=== PATIENT | female | born 1955 | race Caucasian/White ===

== ENCOUNTER 2024-07-16 13:13 | Inpatient (IN) | payer MEDICARE, OTHER, SELFPAY ==
[2024-07-16] VITALS (17 sets, daily range): BP systolic 104–139; BP diastolic 69–87; PULSE 85–105; RESP 10–23; TEMP 36.2–36.7; O2SAT 91–96; BMI 31.0
--- NOTE | 2024-07-16 13:28 | W.ED.ABDPA2 ---
HPI - Abdominal Pain General: Chief Complaint: Abdominal Pain Stated Complaint: lower right side pain Time Seen by Provider: 07/16/24 13:24 Source: patient Mode of arrival: ambulatory Limitations: no limitations History of Present Illness: 69-year-old female who states that she has been having abdominal pain this week. States the pain is sharp in nature in her right lower quadrant and is worsened states much worse with palpation she rates the pain a 7 out of 10 currently she has had vomiting. Denies any fevers denies any previous abdominal surgeries. Associated Symptoms: Reports nausea and vomiting; Denies chills, diarrhea, dysuria and fever(s) Related Data Home Medications Medication Instructions Recorded Confirmed ibuprofen 200 mg tablet 200 mg PO Q6H PRN Pain 07/16/24 07/16/24 omeprazole magnesium 20 mg 20 mg PO BID 07/16/24 07/16/24 tablet,delayed release (Prilosec OTC) psyllium 1 packet PO QPM 07/16/24 07/16/24 Allergies Allergy/AdvReac Type Severity Reaction Status Date / Time No Known Allergies Allergy Verified 07/16/24 13:22 Review of Systems Const: Denies: fever(s), chills, body aches or change in appetite ENMT: Denies: throat pain or dental pain Card: Denies: chest pain Resp: Denies: dyspnea GI: Reports: abdominal pain, nausea and vomiting; Denies: diarrhea : Denies: dysuria Musc: Denies: neck pain or back pain Skin/Breast: Denies: rash Neuro: Denies: headache(s) Physical Exam Const: COMMON NORMALS: no acute distress, patient oriented x3 and healthy appearing HENMT: COMMON NORMALS: normocephalic and atraumatic HEAD & SCALP: normocephalic and atraumatic Neck/C-Spine: COMMON NORMALS: full ROM and supple Chest: COMMONS NORMALS: normal inspection of the chest Resp: COMMON NORMALS: normal respiratory effort, No retractions, No use of accessory muscles and clear to auscultation bilaterally AUSCULTATION: clear to auscultation bilaterally Cardio: COMMON NORMALS: regular rate, regular rhythm and No murmurs present (Cardio) RATE: regular rate RHYTHM: regular rhythm GI: COMMON NORMALS: Normal to inspection, nondistended, normoactive bowel sounds present, Soft to palpation and no masses PALPATION: Yes Soft to palpation and Yes Tenderness to palpation present (GI) Details: RLQ Extremity: COMMON NORMALS: normal to inspection and full ROM Neuro: COMMON NORMALS: patient oriented x3, moves all extremities and no focal motor deficits Psych: COMMON NORMALS: mental status grossly normal, Normal thought process present and cooperative THOUGHT PROCESS: Normal thought process present Skin: COMMON NORMALS: no rashes or lesions noted and no wounds GENERAL SKIN EXAM: no rashes or lesions noted Course Vital Signs: Vital signs: Vital Signs Temperature 97.6 F 07/16/24 13:20 Pulse Rate 105 H 07/16/24 13:20 Respiratory Rate 18 07/16/24 13:44 Blood Pressure 104/69 07/16/24 13:20 Pulse Oximetry 96 07/16/24 13:20 Oxygen Delivery Me thod Room Air 07/16/24 13:20 MDM - Abdominal Pain Medical Decision Making Patient presents here with abdominal pain she does have appendicitis I spoke to surgeon patient started on IV antibiotics. Medical Records I reviewed the patient's medical records. Lab Data I reviewed the patient's lab results. 07/16/24 13:30 07/16/24 13:30 Labs/Radiology: Radiology Impressions Abdomen/Pelvis CT 07/16/24 14:08 IMPRESSION: 1. Severe acute appendicitis without perforation or abscess. 2. Abnormal appearance of the mid small bowel with features including dilatation, increased fluid, air-fluid levels and transition zone. Although findings may be reactive ileus from the appendicitis, there are some anatomic displacement from the appendicitis raising the possibility of an atypical presentation of concomitant small bowel obstruction. 3. Minor findings noted above including hepatomegaly with steatosis. ADDENDUM: 07/16/24 1453 THIS REPORT CONTAINS FINDINGS THAT MAY BE CRITICAL TO PATIENT CARE. The findings were verbally communicated via telephone conference with ABDOUL BRAGA at 2:51 PM HARNESSMAKER on 07/16/2024. The findings were acknowledged and understood. Laboratory Results WBC 16.19 10^3/uL (3.29-11.43) H 07/16/24 13:30 RBC 5.31 10^6/uL (3.85-5.65) 07/16/24 13:30 Hgb 14.60 g/dL (11.27-16.99) 07/16/24 13:30 Hct 43.6 % (36-47) 07/16/24 13:30 MCV 82.1 fl (85-98) L 07/16/24 13:30 MCH 27.5 pg (27-33) 07/16/24 13:30 MCHC 33.5 g/dL (30-55) 07/16/24 13:30 RDW 13.0 % (12.1-15.1) 07/16/24 13:30 Plt Count 274 10^3/cmm (157-399) 07/16/24 13:30 MPV 10.5 fL (7.4-10.4) H 07/16/24 13:30 Neut % (Auto) 81.2 % 07/16/24 13:30 Lymph % (Auto) 8.1 % 07/16/24 13:30 Sumner % (Auto) 10.0 % 07/16/24 13:30 Eos % (Auto) 0.1 % 07/16/24 13:30 Baso % (Auto) 0.2 % 07/16/24 13:30 Neut # (Auto) 13.15 10^3/uL (1.8-7.7) H 07/16/24 13:30 Lymph # (Auto) 1.3 10^3/uL (0.8-4.8) 07/16/24 13:30 Sumner # (Auto) 1.6 10^3/uL (0.2-0.9) H 07/16/24 13:30 Eos # (Auto) 0.0 10^3/uL (0.0-0.8) 07/16/24 13:30 Baso # (Auto) 0.0 10^3/uL (0.0-0.1) 07/16/24 13:30 Nucleated RBC % (auto) 0 % 07/16/24 13:30 Nucleated RBCs # 0.0 /100WBC 07/16/24 13:30 Sodium 131 mmol/L (136-145) L 07/16/24 13:30 Potassium 3.6 mmol/L (3.5-5.1) 07/16/24 13:30 Chloride 87 mmol/L (98-107) L 07/16/24 13:30 Carbon Dioxide 26 mmol/L (22-29) 07/16/24 13:30 Anion Gap 21.6 (5-19) H 07/16/24 13:30 BUN 35 mg/dL (8-23) H 07/16/24 13:30 Creatinine 3.4 mg/dL (0.5-0.9) H 07/16/24 13:30 GFR Calculation 13.4 mL/min (90-130) L 07/16/24 13:30 Glucose 140 mg/dL (65-115) H 07/16/24 13:30 Calculated Osmolality 282 mOsm/kg (285-295) L 07/16/24 13:30 Calcium 10.6 mg/dL (8.5-10.5) H 07/16/24 13:30 Total Bilirubin 0.6 mg/dL (0.15-1.2) 07/16/24 13:30 AST 32 U/L (0-32) 07/16/24 13:30 ALT 33 U/L (0-33) 07/16/24 13:30 Alkaline Phosphatase 177 U/L (35-105) H 07/16/24 13:30 Total Protein 7.8 g/dL (6.6-8.7) 07/16/24 13:30 Albumin 3.8 g/dL (3.5-5.2) 07/16/24 13:30 Globulin 4.0 g/dL (1.3-4.6) 07/16/24 13:30 Lipase 9 U/L (13-60) L 07/16/24 13:30 Urine Color Yellow (Yellow) 07/16/24 13:42 Urine Appearance Slightly cloudy (CLEAR) 07/16/24 13:42 Urine pH TNP 07/16/24 13:42 Ur Specific [place] TNP 07/16/24 13:42 Urine Protein TNP 07/16/24 13:42 Urine Glucose (UA) TNP 07/16/24 13:42 Urine Ketones TNP 07/16/24 13:42 Urine Blood TNP 07/16/24 13:42 Urine Nitrate TNP 07/16/24 13:42 Urine Bilirubin TNP 07/16/24 13:42 Urine Urobilinogen TNP 07/16/24 13:42 Ur Leukocyte Esterase TNP 07/16/24 13:42 Urine RBC None /hpf (0-2) 07/16/24 13:42 Urine WBC 0-4 /hpf (0-5) H 07/16/24 13:42 Ur Squamous Epith Cells 21-50 /hpf (0-5) H 07/16/24 13:42 Amorphous Sediment Not Reportable 07/16/24 13:42 Urine Bacteria 2+ /hpf (NONE) H 07/16/24 13:42 All radiology interpretation(s) finalized by discharge Discharge Plan Discharge Patient Disposition: Admitted As Inpatient Clinical Impression: Acute appendicitis Condition: Stable Coding Level of Care Code ED Product Safety Technician for Arabella Romero
[2024-07-16] MEDS: ondansetron 2 mg/ML SDV 2 mL 4 MG IVP (13:44)
[2024-07-16] MEDS: morphine 4 mg/mL SDV 1 mL IVP (13:44)
[2024-07-16 13:49] LABS: Basophils % 0.2 %; Eosinophils % 0.1 %; Hematocrit 43.6 % (36-47); Lymphocytes # 1.3 10^3/uL (0.8-4.8); Lymphocytes % 8.1 %; Mean Corpuscular HGB Conc 33.5 g/dL (30-55); Mean Corpuscular Hemoglobin 27.5 pg (27-33); Mean Corpuscular Volume 82.1 fl (85-98); Mean Platelet Volume 10.5 fL (7.4-10.4); Monocytes # 1.6 10^3/uL (0.2-0.9); Neutrophils # 13.15 10^3/uL (1.8-7.7); Neutrophils % 81.2 %; Nucleated Red Blood Cells % 0 %; Platelet Count 274 10^3/cmm (157-399); Red Blood Count 5.31 10^6/uL (3.85-5.65); White Blood Count 16.19 10^3/uL (3.29-11.43)
[2024-07-16 14:02] LABS: Urine Appearance Slightly Cloudy (CLEAR)
[2024-07-16 14:03] LABS: Add Urine Microscopic? YES; Bacteria Urine 2+ /hpf; Squamous Epithelial Cell Urine 21-50 /hpf (0-5); UA Manual Slide Review YES; WBC Urine 0-4 /hpf (0-5)
[2024-07-16 14:04] LABS: Add Urine Culture? No; Urine Color Yellow (Yellow)
[2024-07-16 14:07] LABS: Alanine Aminotransferase 33 U/L (0-33); Albumin Level 3.8 g/dL (3.5-5.2); Alkaline Phosphatase 177 U/L (35-105); Anion Gap 21.6 (5-19); Aspartate Amino Transferase 32 U/L (0-32); Blood Urea Nitrogen 35 mg/dL (8-23); Calcium 10.6 mg/dL (8.5-10.5); Carbon Dioxide 26 mmol/L (22-29); Chloride 87 mmol/L (98-107); Glomerular Filtration Rate 13.4 mL/min (90-130); Glucose 140 mg/dL (65-115); Lipase 9 U/L (13-60); Osmolality Calculated 282 mOsm/kg (285-295); Potassium 3.6 mmol/L (3.5-5.1); Sodium 131 mmol/L (136-145); Total Bilirubin 0.6 mg/dL (0.15-1.2); Total Protein 7.8 g/dL (6.6-8.7)
--- NOTE | 2024-07-16 14:08 | CTR_ITS ---
PROCEDURE INFORMATION: Exam: CT Abdomen And Pelvis Without Contrast Exam date and time: 07/16/2024 2:25 PM Age: 69 years old Clinical indication: Abdominal pain; Localized; Right lower quadrant (rlq); Additional info: Rlq pain TECHNIQUE: Imaging protocol: Computed tomography of the abdomen and pelvis without contrast. Radiation optimization: All CT scans at this facility use at least one of these dose optimization techniques: automated exposure control; mA and/or kV adjustment per patient size (includes targeted exams where dose is matched to clinical indication); or iterative reconstruction. COMPARISON: No relevant prior studies available. RADIATION DOSE METRICS: Total DLP (mGy-cm): 873.44 FINDINGS: Lungs: Bibasilar scar and/or atelectasis. Traction bronchiectasis is present greatest in the right lower lobe posterior basilar segment. Calcified pulmonary granulomata are present. Coronary arteries: Coronary artery calcifications. Diaphragm: Small hiatal hernia. Liver: Hepatic steatosis. Liver is mildly enlarged. Gallbladder and biliary ducts: Gallbladder is largely filled with calculi and sludge. No biliary dilatation. Pancreas: No significant pancreatic pathology. Spleen: No significant pathology. Adrenal glands: No significant adrenal pathology. Kidneys and ureters: No significant renal pathology. Stomach and bowel: Colonic diverticulosis without evidence of focal inflammatory change. Abnormal appearance of mid small bowel loops with normal caliber of the terminal ileum. Features include dilatation, increased fluid and air-fluid levels. There is a transition zone seen in the right paramedian pelvis (series 4, images 167-145) with no discrete obstructing lesion seen. Appendix: Abnormal appearance of the appendix with features including enlargement, periappendiceal fat infiltration, appendicolith and mural thickening and irregularity. No perforation or abscess. Mild adjacent mesenteric lymphadenopathy. Intraperitoneal space: No ascites. Vasculature: No abdominal aortic aneurysm. Lymph nodes: No evidence of lymphadenopathy. Urinary bladder: Urinary bladder is nondistended limiting assessment of the wall. No urinary calculus or upper tract obstruction. Reproductive: No significant uterine pathology. No significant adnexal pathology. Bones/joints: Levocurvature of the lumbar spine with marked degenerative change. Mild bilateral hip DJD. Soft tissues: Tiny fat containing umbilical hernia. CT/CT kidney stone [id number] IMPRESSION: 1. Severe acute appendicitis without perforation or abscess. 2. Abnormal appearance of the mid small bowel with features including dilatation, increased fluid, air-fluid levels and transition zone. Although findings may be reactive ileus from the appendicitis, there are some anatomic displacement from the appendicitis raising the possibility of an atypical presentation of concomitant small bowel obstruction. 3. Minor findings noted above including hepatomegaly with steatosis.
[2024-07-16] MEDS: sodium chloride 0.9% 1,000 ML 999 ML IV (14:39)
[2024-07-16] MEDS: piperacillin-tazobactam 3.375 GM in sodium chloride 0.9% (plus) 50 ML IV (15:12)
--- NOTE | 2024-07-16 15:24 | P.HP_ITS ---
Providers/Chief Complaint 2 Primary Care Provider: Cornleius Shaw MD Chief Complaint: lower right side pain History of Present Illness Pablo Champagne is a 69 year old female who presents to the hospital complaining of 5 days of abdominal pain, initially started in the epigastrium and then migrated to the right lower quadrant. In addition patient had nausea and vomiting. Last bowel movement was Thursday. A CT scan done in the ED showed evidence of severe acute appendicitis and there is associated ileus. Review of Systems 2 General: Reports: 10 or more systems reviewed and unremarkable except in HPI and below Medications/Allergies Home Medications Medication Instructions Recorded Confirmed Last Taken Type ibuprofen 200 mg tablet 200 mg PO Q6H PRN Pain 07/16/24 07/16/24 07/16/24 History omeprazole magnesium 20 mg 20 mg PO BID 07/16/24 07/16/24 Unknown History tablet,delayed release (Prilosec OTC) psyllium 1 packet PO QPM 07/16/24 07/16/24 07/15/24 History Allergies Allergy/AdvReac Type Severity Reaction Status Date / Time No Known Allergies Allergy Verified 07/16/24 13:22 Vitals/I&O/Wt Last Vital Signs Temp 97.6 F 07/16/24 13:20 Pulse 105 H 07/16/24 13:20 Resp 18 07/16/24 13:44 BP 104/69 07/16/24 13:20 Pulse Ox 96 07/16/24 13:20 O2 Del Method Room Air 07/16/24 13:20 Weight last 48 hrs Weight 198 lb Physical Exam 2 GI: OTHER: Abdomen is distended, there is tenderness to palpation especially in the right lower quadrant where there is localized peritonitis. Data 07/16/24 13:30 07/16/24 13:30 Micro: Microbiology 07/16/24 13:38 Blood Culture - Preliminary Blood SPECIMEN COLLECTED 07/16/24 13:30 Blood Culture - Preliminary Blood SPECIMEN COLLECTED A&P Assessment and plan (1) Acute appendicitis: (2) Acute kidney injury: (3) Adynamic ileus: Plan After complete history and physical examination and review of all available clinical data the following is my assessment. Patient presents with acute appendicitis with localized peritonitis and an associated adding Felecia ileus. In the emergency department she is slightly tachycardic and white count is elevated as well as creatinine likely due to his dehydration. I have discussed with the patient the treatment options we have decided to proceed with a laparoscopic possible open appendectomy. I discussed all risk and benefits of the procedure including the risk of bleeding, infection, hernia, need to conversion to open procedure, abscess formation, injury to the adjacent structures including the small bowel, colon, ureter, bladder, large vessels of the pelvis, there is also risk of bowel perforation as this is distended. Patient family member show understanding and agreed to proceed. Patient will remain in the hospital after surgery due to severity of the acute appendicitis, peritonitis, kidney injury and a dynamic ileus Attestations 2 Medical Necessity Statement*: Patient will require 2 to 3 days of hospital stay. Coding Level of Care Code Acute Code for [facility] Diagnoses Acute appendicitis K35.80 Acute kidney injury N17.9 Adynamic ileus K56.0
--- NOTE | 2024-07-16 15:47 | P.ANESASSM_ITS ---
Pre-Anesthetic Assessment Height/Weight: Height 5 ft 7 in Weight 198 lb Temp Pulse Resp BP Pulse Ox O2 Del Method 97.9 F 95 18 118/73 95 Room Air 07/16/24 15:35 07/16/24 15:35 07/16/24 15:35 07/16/24 15:35 07/16/24 15:35 07/16/24 15:35 Preop Diagnosis: Acute appendicitis Operation Date: 07/16/24 16:10 Proposed Procedures p Laparoscopic Appendectomy(Right) - Tavon White MD Was Beta Fabiana taken within 24 hours: N/A Was Clonidine taken within 24 hours: N/A Social Tobacco and No alcohol Exam alert, oriented x 3, clear to auscultation bilaterally and regular rate & rhythm Airway Submandibular: within normal limits Cervical ROM: within normal limits Mallampati: Class II Comments: Comments: Edentulous Anesthetic Plan ASA status: 3E Anesthesia: General Other: Patient states that she has never had anesthesia before No food since yesterday evening and she was not able to keep it down. Periodic sips of water today. Most recent water over 2 hours ago Current smoker, no inhalers GERD on omeprazole Leukocytosis noted, WBC 16.19 JACQUE, creatinine 3.4, K+ 3.6, NA 131 METs greater than 4 Vitals are currently stable, tachycardic in the ER. Current HR 95 Plan for GETA Medications/Allergies Home Medications Medication Instructions Recorded Confirmed Last Taken Type ibuprofen 200 mg tablet 200 mg PO Q6H PRN Pain 07/16/24 07/16/24 07/16/24 History omeprazole magnesium 20 mg 20 mg PO BID 07/16/24 07/16/24 Unknown History tablet,delayed release (Prilosec OTC) psyllium 1 packet PO QPM 07/16/24 07/16/24 07/15/24 History Allergies Allergy/AdvReac Type Severity Reaction Status Date / Time No Known Allergies Allergy Verified 07/16/24 13:22 Data Anesthesia 07/16/24 13:30 07/16/24 13:30 Short CBC 07/16/24 Range/Units 13:30 WBC 16.19 H (3.29-11.43) 10^3/uL Hgb 14.60 (11.27-16.99) g/dL Hct 43.6 (36-47) % MCV 82.1 L (85-98) fl Plt Count 274 (157-399) 10^3/cmm Neut % (Auto) 81.2 % Neut # (Auto) 13.15 H (1.8-7.7) 10^3/uL BMP 07/16/24 13:30 Sodium 131 L Potassium 3.6 Chloride 87 L Carbon Dioxide 26 BUN 35 H Creatinine 3.4 H Glucose 140 H Calcium 10.6 H Liver Function 07/16/24 Range/Units 13:30 Total Bilirubin 0.6 (0.15-1.2) mg/dL AST 32 (0-32) U/L ALT 33 (0-33) U/L Alkaline Phosphatase 177 H (35-105) U/L Albumin 3.8 (3.5-5.2) g/dL Urine 07/16/24 Range/Units 13:42 Urine Color Yellow (Yellow) Urine Appearance Slightly cloudy (CLEAR) Urine pH TNP Ur Specific [place] TNP Urine Protein TNP Urine Glucose (UA) TNP Urine Ketones TNP Urine Nitrate TNP Urine Bilirubin TNP Ur Leukocyte Esterase TNP Urine RBC None (0-2) /hpf Urine WBC 0-4 H (0-5) /hpf Microbiology 07/16/24 13:38 Blood Culture - Preliminary Blood SPECIMEN COLLECTED 07/16/24 13:30 Blood Culture - Preliminary Blood SPECIMEN COLLECTED Cardiac Studies: 2 No Data to Display
[2024-07-16] MEDS: BUPivacaine 0.25% INJ 30 mL INJECTION (16:32)
[2024-07-16] MEDS: lidocaine-epi 1% 20 mL INJ INJECTION (16:32)
--- NOTE | 2024-07-16 17:07 | P.OP_ITS ---
Operative Report Date of procedure: July 16, 2024 Pre-op diagnosis: Acute appendicitis with localized peritonitis Post-op diagnosis: Acute appendicitis with feculent peritonitis Post-op findings: There was a large phlegmon on the right lower quadrant involving the omentum the terminal ileum and the cecum, there was a small abscess once the phlegmon was unraveled, the appendix was in a retrocecal but intraperitoneal position, it was inflamed and had a perforation near the base, there was feculent material draining of the appendix. There were several peritoneal inflamatory runts consistent with acute peritonitis. Procedure done: Laparoscopic appendectomy Specimens removed/disposition: Appendix Surgeon: Tavon White MD Production Quality Manager: ASHKAN OR Staff Estimated blood loss: 10 ml Brief History: 69-year-old female with 5 days of abdominal pain who was noted to have acute appendicitis on imaging. After discussion we will resume benefits documented my preop note with side to proceed to the OR for laparoscopic possible open appendectomy. Procedure: Patient was brought into the OR, she was placed in a supine position. General anesthesia was given. The abdomen was prepped and draped in the usual sterile fashion. NG tube was placed and the stomach decompressed. A timeout was conducted. I then proceeded to access the abdomen with an open technique and a 12 mm Santhosh Trocar in the Infraumbilical Location. The Trocar Was Fixed to the Fascia with #0 Vicryl. Initial Pneumoperitoneum Was Obtained and No Evidence of Visceral Injury during Entry Was Noted. Additional 5 Mm Trocars Were Placed in the Suprapubic and Left Lower Quadrant Position. The Patient Was Placed in a Steep Trendelenburg with the Left Side down. Laparoscopy Showed Evidence of a Large Phlegmon in the Right Lower Quadrant and There Was Immediate Visualization of Some Purulent Material between the Phlegmon on the Anterior Abdominal Wall. With Careful Blunt Dissection I Was Able to Unravel the Phlegmon That Was Composed by Omentum the Terminal Ileum and the Cecum, a Small Abscess Was Revealed, This Was Suctioned and Cultures Taken. There Was Purulence and Some Fecal Material at the Level of the Base of the Appendix. I Was Able to Retract the Cecum Medially Revealing a Retrocecal Appendix. The Appendix Was Noted to Be Perforated near the Base. I Grabbed Appendix by the Tip and with Careful Blunt Dissection I Was Able to Separate it from the Cecum. I Then Used LigaSure to Take down the Mesoappendix from the Tip to the Base of the Appendix. Since the Perforation Was Very Close to the Base and the Terminal Ileum Was Very Close to the Appendiceal Orifice I Decided to Proceed with Endoloop for Closure of the Appendiceal Orifice Rather Than to staple. I used two #2-0 PDS Endoloops to secure the base of the appendix proximal to the area of perforation. I then placed 1 more Endoloop just distal to the previous 2 and then proceeded to transect the appendix between the Endoloops using endoscopic scissors. The specimen was retrieved via the umbilical trocar site in an Endo Catch bag. I then proceeded to examine the base of the appendix, it appeared inflamed but no evidence of leakage, I then proceeded to suction and irrigate the purulence and feculent material that was noted in the appendiceal bed. I then proceeded to submerge the appendiceal stump in water and provided gentle pressure in the cecum to test for leaks, no evidence of leakage was noted. A 19 Estonian channel drain was then placed in the right paracolic gutter and pelvis and delivered through the suprapubic trocar site. The drain was fixed with #3-0 nylon. I then proceeded to cover the cecum and appendiceal base with omentum. The umbilical trocar was then removed and the port site was closed with a Jesse- Yolanda suture passer under direct visualization using a 0 Vicryl. Finally the left lower quadrant trocar was used to evacuate the pneumoperitoneum and subsequently removed. The wounds were closed in layers using #3-0 Vicryl for the subcutaneous tissue #4 Monocryl for the skin and Dermabond was applied. At the end of the procedure all counts were correct, the patient tolerated well the procedure and was transferred to the PACU in stable condition.
[2024-07-16] MEDS: fentaNYL 50 mcg/mL INJ 2mL IVP (17:45)
--- NOTE | 2024-07-16 18:03 | ANE.PACU2 ---
Inpatient post-anesthesia follow up: Airway intact: Yes Vital signs: Temperature 97.6 F Pulse Rate 84 Respiratory Rate 17 Blood Pressure 139/68 Pulse Oximetry 95 Oxygen Delivery Me thod Room Air Oxygen Flow Rate Fraction of Inspir ed Oxygen Hydration adequate: Yes Nausea and vomiting: No Pain level: 1 Mental status: Baseline
--- NOTE | 2024-07-16 18:12 | XRR_ITS ---
PROCEDURE INFORMATION: Exam: XR Chest Exam date and time: 07/16/2024 6:29 PM Age: 69 years old Clinical indication: Device placement; Ng tube; Additional info: Ng tube confirmation TECHNIQUE: Imaging protocol: Radiologic exam of the chest. Views: 1 view. COMPARISON: CT kidney stone [id number] 07/16/2024 2:25 PM FINDINGS: Tubes, catheters and devices: NG tube terminates at the stomach with side hole at the proximal stomach. Lungs: Lung apices outside the field of view. Calcific sequela of old granulomatous disease. Mild bibasilar linear atelectasis versus scarring. Pleural spaces: Unremarkable. No pleural effusion. No pneumothorax. Heart/Mediastinum: Unremarkable. No cardiomegaly. Bones/joints: Degenerative changes along the spine. XR/XR chest 1V portable [id number] IMPRESSION: NG tube terminates at the stomach.
--- NOTE | 2024-07-16 18:20 | PC.NURSE ---
1810 - accepted to room 279-2 with KAVON Hanson at side - NG to left nare clamped - JIAN compressed = BP 125/78 - pulse 89 - 92% room air Temp 97.5 - pt in no distress upon this nurse exiting room
[2024-07-16] MEDS: HYDROmorphone 1 mg/mL INJ 1 mL 0.4 MG IVP (19:01)
[2024-07-16] MEDS: acetaminophen 1,000 MG/100 ML PIGGYBACK 400 MG IV (19:02)
[2024-07-16] MEDS: pantoprazole 40 mg SDV IVP (19:02)
[2024-07-16] MEDS: sodium chlor 0.9% + KCl 20 mEq 20 MEQ/1,000 ML BAG 100 MEQ IV (19:02)
[2024-07-17] VITALS (7 sets, daily range): BP systolic 101–142; BP diastolic 65–89; PULSE 67–86; RESP 16–20; TEMP 36.4–36.7; O2SAT 91–95
[2024-07-17] MEDS: acetaminophen 1,000 MG/100 ML PIGGYBACK 400 MG IV ×2 (02:48→10:15)
[2024-07-17] MEDS: piperacillin-tazobactam 3.375 GM in sodium chloride 0.9% (plus) 50 ML IV ×2 (03:13→14:59)
[2024-07-17] MEDS: sodium chlor 0.9% + KCl 20 mEq 20 MEQ/1,000 ML BAG 100 MEQ IV ×2 (04:47→15:00)
[2024-07-17 05:44] LABS: Basophils % 0.2 %; Hematocrit 37.2 % (36-47); Lymphocytes # 0.7 10^3/uL (0.8-4.8); Lymphocytes % 5.8 %; Mean Corpuscular HGB Conc 32.3 g/dL (30-55); Mean Corpuscular Hemoglobin 27.3 pg (27-33); Mean Corpuscular Volume 84.7 fl (85-98); Mean Platelet Volume 10.1 fL (7.4-10.4); Monocytes # 0.6 10^3/uL (0.2-0.9); Monocytes % 4.6 %; Neutrophils # 11.29 10^3/uL (1.8-7.7); Neutrophils % 88.9 %; Nucleated Red Blood Cells % 0 %; Platelet Count 219 10^3/cmm (157-399); Red Blood Count 4.39 10^6/uL (3.85-5.65); Red Cell Distribution Width 13.2 % (12.1-15.1); White Blood Count 12.69 10^3/uL (3.29-11.43)
[2024-07-17 06:03] LABS: Anion Gap 19.5 (5-19); Blood Urea Nitrogen 38 mg/dL (8-23); Calcium 8.6 mg/dL (8.5-10.5); Carbon Dioxide 21 mmol/L (22-29); Chloride 96 mmol/L (98-107); Creatinine Clr Calc Pharmacy 27.7991; Glomerular Filtration Rate 22.1 mL/min (90-130); Glucose 137 mg/dL (65-115); Magnesium 2.4 mg/dL (1.7-2.3); Osmolality Calculated 285 mOsm/kg (285-295); Phosphorus 5.2 mg/dL (2.5-4.5); Potassium 4.5 mmol/L (3.5-5.1); Sodium 132 mmol/L (136-145)
[2024-07-17] MEDS: pantoprazole 40 mg SDV IVP ×2 (06:16→10:15)
--- NOTE | 2024-07-17 07:50 | P.PN_ITS ---
Subjective 2 Subjective: Postoperative day 1 status post laparoscopic appendectomy for perforated acute appendicitis with feculent peritonitis. Patient is doing well overnight, pain is under control. NG tube output has been minimal. No gas or bowel movements yet. JIAN output 80 cc. Vitals/I&O/Wt Last Vital Signs Temp 97.7 F 07/17/24 04:00 Pulse 84 07/17/24 04:00 Resp 17 07/17/24 04:00 BP 123/79 07/17/24 04:00 Pulse Ox 93 07/17/24 04:00 O2 Del Method Room Air 07/17/24 04:00 07/16/24 07/17/24 07/17/24 22:59 06:59 14:59 Intake Total 1700 / 1700 1075 / 2775 Output Total 165 / 165 50 / 50 Balance 1535 / 1535 1075 / 2610 -50 / -50 Weight last 48 hrs Weight 198 lb 7 oz Weight 198 lb 6.4 oz Weight 198 lb Physical Exam 2 GI: OTHER: Abdomen is soft mildly distended, appropriately tender to palpation, there is some bowel sounds, JIAN drain in place with serosanguineous output. Data 07/17/24 05:12 07/17/24 05:12 Micro: Microbiology 07/16/24 13:38 Blood Culture - Preliminary Blood SPECIMEN COLLECTED 07/16/24 13:30 Blood Culture - Preliminary Blood SPECIMEN COLLECTED A&P Assessment and plan (1) Acute appendicitis with generalized peritonitis and abscess: (2) Adynamic ileus: (3) Acute kidney injury: Plan Patient showing adequate progression after surgical procedure. She will require hospital course of 3 to 5 days of antibiotics and may require repeat imaging before discharging. This due to the severity of infection. We will remove NG tube today and allow her to have clears, when she has bowel movement or bowel function we will advance a diet. I have encouraged her to ambulate. Her creatinine is trending down. White count is trending down. Consider heparin DVT prophylaxis starting tomorrow. Attestations 2 Medical Necessity Statement*: Patient will require 3 to 5 days of hospital stay. Coding Level of Care Code Acute Code for [facility] Diagnoses Acute appendicitis with generalized peritonitis and abscess K35.219 Adynamic ileus K56.0 Acute kidney injury N17.9
--- NOTE | 2024-07-17 20:17 | PM.MISC ---
Miscellaneous Note Purpose of Documentation: Update on patient care Note: Patient has been doing okay, now having some pain especially in the surgical area which is expected. Has not passed any gas has noted some burping. We will continue clear liquid diet for now she has ambulated and we will continue to encourage ambulation. Will plan to advance diet once ileus resolves and she has adequate bowel function.
[2024-07-17] MEDS: acetaminophen 325 mg Tablet 650 MG PO (20:18)
[2024-07-18] VITALS (7 sets, daily range): BP systolic 130–154; BP diastolic 68–92; PULSE 70–85; RESP 16–18; TEMP 36.4–36.7; O2SAT 91–98
[2024-07-18] MEDS: sodium chlor 0.9% + KCl 20 mEq 20 MEQ/1,000 ML BAG 100 MEQ IV ×2 (00:07→10:41)
[2024-07-18] MEDS: piperacillin-tazobactam 3.375 GM in sodium chloride 0.9% (plus) 50 ML IV ×2 (02:34→14:56)
[2024-07-18] MEDS: acetaminophen 325 mg Tablet 650 MG PO ×4 (02:34→20:47)
[2024-07-18] MEDS: HYDROmorphone 1 mg/mL INJ 1 mL 0.4 MG IVP ×2 (02:40→15:02)
[2024-07-18 05:11] LABS: Basophils % 0.1 %; Eosinophils % 0.1 %; Hematocrit 37.9 % (36-47); Lymphocytes # 1.7 10^3/uL (0.8-4.8); Lymphocytes % 11.2 %; Mean Corpuscular HGB Conc 31.1 g/dL (30-55); Mean Corpuscular Hemoglobin 27.1 pg (27-33); Mean Corpuscular Volume 86.9 fl (85-98); Mean Platelet Volume 9.5 fL (7.4-10.4); Monocytes % 6.2 %; Neutrophils # 12.54 10^3/uL (1.8-7.7); Neutrophils % 81.5 %; Nucleated Red Blood Cells % 0 %; Platelet Count 255 10^3/cmm (157-399); Red Blood Count 4.36 10^6/uL (3.85-5.65); Red Cell Distribution Width 13.9 % (12.1-15.1); White Blood Count 15.39 10^3/uL (3.29-11.43)
[2024-07-18 05:29] LABS: Blood Urea Nitrogen 28 mg/dL (8-23); Calcium 8.3 mg/dL (8.5-10.5); Carbon Dioxide 21 mmol/L (22-29); Chloride 102 mmol/L (98-107); Creatinine Clr Calc Pharmacy 55.5982; Glomerular Filtration Rate 49.2 mL/min (90-130); Glucose 89 mg/dL (65-115); Magnesium 2.1 mg/dL (1.7-2.3); Osmolality Calculated 283 mOsm/kg (285-295); Sodium 134 mmol/L (136-145)
[2024-07-18 05:32] LABS: Anion Gap 15.1 (5-19); Potassium 4.1 mmol/L (3.5-5.1)
[2024-07-18 05:54] LABS: Slide Review Slide Review Perform
--- NOTE | 2024-07-18 06:57 | PM.PN ---
Subjective Subjective: This postoperative day 2 status post laparoscopic appendectomy for perforated acute appendicitis with abscess and feculent peritonitis. Patient is doing okay, no significant abdominal pain. Has not passed gas yet. Complains of back pain and therefore she had to sleep in the recliner. No nausea or vomiting. Ambulated yesterday 2 laps. Vitals/I&O/Wt Last Vital Signs Temp 97.7 F 07/18/24 04:00 Pulse 80 07/18/24 04:00 Resp 16 07/18/24 02:40 BP 130/82 07/18/24 04:00 Pulse Ox 91 07/18/24 04:00 O2 Del Method Room Air 07/18/24 04:00 07/17/24 07/17/24 07/18/24 14:59 22:59 06:59 Intake Total 1690 / 1690 590 / 2280 961.667 / 3241.667 Output Total 50 / 50 410 / 460 Balance 1640 / 1640 590 / 2230 551.667 / 2781.667 Weight last 48 hrs Weight 198 lb 7 oz Weight 198 lb 6.4 oz Weight 198 lb Physical Exam GI: OTHER: Abdomen is soft, mildly distended, appropriately tender in the right hemiabdomen. JIAN drain shows 100 cc of output over the last 24 hours of serosanguineous fluid which is minimally turbid Data 07/18/24 04:55 07/18/24 04:55 Micro: Microbiology 07/16/24 13:38 Blood Culture - Preliminary Blood NEGATIVE TO DATE 07/16/24 13:30 Blood Culture - Preliminary Blood NEGATIVE TO DATE A&P Assessment and plan (1) Adynamic ileus: (2) Acute appendicitis with generalized peritonitis and abscess: (3) Acute kidney injury: Plan Patient showing liquid progression after surgery, still has a persistent ileus. Her white count trended up to 15.3 today from 12 yesterday. She has remained afebrile, no tachycardia. Acute kidney injury has resolved the creatinine is 1.1 today. Her phosphorus trended down to 2 I will provide p.o. replacement. We will start chemical DVT prophylaxis today. Plan is to continue current management, indicates he continues uptrend of the white count we may decide to repeat imaging. Otherwise patient will stay there for 5 days in the hospital before transition to the outpatient setting. Will continue on clear liquid diet today, once patient pass gas we will advance diet. Attestations Medical Necessity Statement*: Patient will require 3 to 5 days of hospital stay for postoperative management of acute appendicitis with perforation for management of adynamic ileus. Coding Level of Care Code Acute Code for [facility] Diagnoses Adynamic ileus K56.0 Acute appendicitis with generalized peritonitis and abscess K35.219 Acute kidney injury N17.9
[2024-07-18] MEDS: enoxaparin 40 mg/0.4 mL Syringe SUBCUT (08:31)
[2024-07-18] MEDS: pantoprazole 40 mg SDV IVP (08:31)
[2024-07-18] MEDS: phosphorus 250 mg Tablet PO ×2 (08:33→17:37)
[2024-07-18] MEDS: lactated ringers 1,000 ML 75 ML IV (20:47)
[2024-07-18] MEDS: ondansetron 2 mg/ML SDV 2 mL 4 MG IVP (22:51)
[2024-07-19 04:00] VITALS: BP 149/99; PULSE 93; RESP 18; TEMP 36.3; O2SAT 97
[2024-07-19] MEDS: piperacillin-tazobactam 3.375 GM in sodium chloride 0.9% (plus) 50 ML IV ×2 (05:17→15:04)
[2024-07-19 06:10] LABS: Basophils % 0.3 %; Eosinophils % 0.2 %; Hematocrit 43.7 % (36-47); Lymphocytes # 2.4 10^3/uL (0.8-4.8); Mean Corpuscular HGB Conc 31.6 g/dL (30-55); Mean Corpuscular Hemoglobin 27.2 pg (27-33); Mean Platelet Volume 9.6 fL (7.4-10.4); Monocytes # 0.9 10^3/uL (0.2-0.9); Monocytes % 6.5 %; Neutrophils % 73.9 %; Nucleated Red Blood Cells % 0 %; Platelet Count 313 10^3/cmm (157-399); Red Blood Count 5.08 10^6/uL (3.85-5.65); Red Cell Distribution Width 13.9 % (12.1-15.1); White Blood Count 13.93 10^3/uL (3.29-11.43)
[2024-07-19 06:29] LABS: Anion Gap 18.6 (5-19); Blood Urea Nitrogen 19 mg/dL (8-23); Calcium 8.7 mg/dL (8.5-10.5); Carbon Dioxide 23 mmol/L (22-29); Chloride 97 mmol/L (98-107); Creatinine Clr Calc Pharmacy 76.4475; Glomerular Filtration Rate 71.1 mL/min (90-130); Glucose 88 mg/dL (65-115); Magnesium 2.1 mg/dL (1.7-2.3); Osmolality Calculated 280 mOsm/kg (285-295); Phosphorus 2.3 mg/dL (2.5-4.5); Potassium 4.6 mmol/L (3.5-5.1); Sodium 134 mmol/L (136-145)
--- NOTE | 2024-07-19 06:38 | XRR_ITS ---
PROCEDURE INFORMATION: Exam: XR Abdomen Exam date and time: 07/19/2024 7:29 AM Age: 69 years old Clinical indication: Device placement; Gi device; Nasogastric tube; Prior surgery; Surgery date: Post-operative (0-2 days); Surgery type: Ileus; Patient HX: Ng tube placement, postop iieus; Additional info: Post op ileus TECHNIQUE: Imaging protocol: Radiologic exam of the abdomen. Views: Frontal supine view of the abdomen. 1 View. COMPARISON: CT kidney stone [id number] 07/16/2024 2:25 PM FINDINGS: Gastrointestinal tract: Persistent dilatation of small bowel loops throughout the abdomen with air-fluid levels concerning for ileus versus small bowel obstruction. Interval placement of enteric feeding tube with its distal tip and side port subdiaphragmatic and likely within the gastric lumen. Bones/joints: Unremarkable. XR/XR abdomen 1V* [id number] IMPRESSION: As above.
[2024-07-19 06:59] LABS: Slide Review Slide Review Perform
[2024-07-19] MEDS: enoxaparin 40 mg/0.4 mL Syringe SUBCUT (07:22)
--- NOTE | 2024-07-19 07:57 | P.PN_ITS ---
Subjective 2 Subjective: Over the last 24 hours patient has developed multiple episodes of bilious emesis. Denies significant abdominal pain, according to her she is passing good amount of gas this morning but no bowel movement. Patient was made n.p.o. an NG tube was placed. Vitals/I&O/Wt Last Vital Signs Temp 97.3 F L 07/19/24 04:00 Pulse 93 07/19/24 04:00 Resp 18 07/19/24 04:00 BP 149/99 07/19/24 04:00 Pulse Ox 97 07/19/24 04:00 O2 Del Method Room Air 07/19/24 04:00 07/18/24 07/19/24 07/19/24 22:59 06:59 14:59 Intake Total 1770 / 3370 0 / 3370 Output Total 570 / 1170 590 / 1760 Balance 1200 / 2200 -590 / 1610 Physical Exam 2 GI: OTHER: Abdominal exam shows a distended abdomen with appropriate tenderness to palpation, JIAN drain is in place with seropurulent drainage has been around 300 over the last 24 hours Data 07/19/24 05:47 07/19/24 05:47 A&P Assessment and plan (1) Hypophosphatemia: (2) Adynamic ileus: (3) Acute appendicitis with generalized peritonitis and abscess: Plan 69-year-old female who presented with acute appendicitis with abscess and perforation and localized peritonitis as well as a adynamic ileus. Today's hospital day 3. Overnight she developed nausea and vomit. This consistent with a persistent nondynamic ileus. NG tube was placed we will plan for decompression for the next 48 hours. After the period of decompression if there is no bowel movement or actual evidence of progression we will obtain repeat imaging. Vital signs have been stable she has been afebrile no tachycardia noted. The white count has trended down to 13.9, creatinine has normalized. Continues to have hypophosphatemia. The plan for today is to ambulate as tolerated, NG tube to low intermittent suction will the patient is in bed. Continue IV fluids and IV antibiotics. I will provide replacement for the hypophosphatemia. Attestations 2 Medical Necessity Statement*: Patient will require at least 3 more days of hospital stay for management of perforated appendicitis with abscess as well as adynamic ileus after surgery Coding Level of Care Code Acute Code for [facility] Diagnoses Hypophosphatemia E83.39 Adynamic ileus K56.0 Acute appendicitis with generalized peritonitis and abscess K35.219
[2024-07-19 08:00] VITALS: BP 127/80; PULSE 91; RESP 17; TEMP 36.5; O2SAT 94
[2024-07-19] MEDS: ketorolac 30 mg/mL INJ 15 MG IVP ×3 (10:28→21:51)
[2024-07-19] MEDS: dextrose 5%-sod chloride 0.9% 1,000 ML 100 ML IV (10:28)
[2024-07-19] MEDS: pantoprazole 40 mg SDV IVP (10:28)
[2024-07-19] MEDS: potassium phosphate (mMol PO4) 15 MMOL in sodium chloride 0.9% (100 ml) 100 ML 47 MMOL IV (11:28)
[2024-07-19 11:36] VITALS: BP 147/88; PULSE 89; RESP 17; TEMP 36.9; O2SAT 95
--- NOTE | 2024-07-19 15:25 | P.MISC_ITS ---
Miscellaneous Note Purpose of Documentation: Update on patient care Note: Patient has been seen 2 more times since the morning today, has been able to ambulate, according to the patient family member she has passed gas. Denies abdominal pain, anesthesia stable vital signs. NG output has been around 400 cc of bilious material. On my examination abdomen still distended but bowel sounds are improved, JIAN drain output looks more serous than seropurulent this af ternoon. I have encouraged her to continue ambulation, and using incentive spirometer. Plan remains the same, we will continue decompression for another 24 hours and then we will repeat imaging with p.o. contrast.
[2024-07-19 15:44] VITALS: BP 142/88; PULSE 90; RESP 18; TEMP 36.8; O2SAT 94
[2024-07-19 19:01] VITALS: BP 134/85; PULSE 86; RESP 17; TEMP 36.8; O2SAT 96
[2024-07-20] VITALS (7 sets, daily range): BP systolic 120–148; BP diastolic 64–93; PULSE 64–84; RESP 16–18; TEMP 36.4–36.9; O2SAT 94–97
[2024-07-20] MEDS: dextrose 5%-sod chloride 0.9% 1,000 ML 100 ML IV (03:09)
[2024-07-20 03:10] LABS: Basophils % 0.2 %; Eosinophils # 0.1 10^3/uL (0.0-0.8); Eosinophils % 0.8 %; Hematocrit 39.2 % (36-47); Lymphocytes # 2.3 10^3/uL (0.8-4.8); Lymphocytes % 21.7 %; Mean Corpuscular HGB Conc 32.1 g/dL (30-55); Mean Corpuscular Hemoglobin 27.6 pg (27-33); Mean Corpuscular Volume 85.8 fl (85-98); Mean Platelet Volume 8.9 fL (7.4-10.4); Monocytes # 1.1 10^3/uL (0.2-0.9); Neutrophils # 6.93 10^3/uL (1.8-7.7); Nucleated Red Blood Cells % 0 %; Platelet Count 283 10^3/cmm (157-399); Red Blood Count 4.57 10^6/uL (3.85-5.65); Red Cell Distribution Width 13.9 % (12.1-15.1); White Blood Count 10.68 10^3/uL (3.29-11.43)
[2024-07-20] MEDS: piperacillin-tazobactam 3.375 GM in sodium chloride 0.9% (plus) 50 ML IV ×3 (03:10→21:50)
[2024-07-20] MEDS: ketorolac 30 mg/mL INJ 15 MG IVP ×4 (03:10→22:59)
[2024-07-20 03:46] LABS: Anion Gap 12.9 (5-19); C Reactive Protein 141.3 mg/L (0.0-4.9); Carbon Dioxide 23 mmol/L (22-29); Chloride 103 mmol/L (98-107); Glucose 122 mg/dL (65-115); Phosphorus 2.2 mg/dL (2.5-4.5); Potassium 3.9 mmol/L (3.5-5.1); Sodium 135 mmol/L (136-145)
[2024-07-20 04:00] LABS: Slide Review Slide Review Perform
[2024-07-20 04:07] LABS: Blood Urea Nitrogen 19 mg/dL (8-23); Calcium 8.3 mg/dL (8.5-10.5); Creatinine Clr Calc Pharmacy 76.4475; Magnesium 2.3 mg/dL (1.7-2.3); Osmolality Calculated 284 mOsm/kg (285-295)
--- NOTE | 2024-07-20 06:08 | XRR_ITS ---
PROCEDURE INFORMATION: Exam: XR Abdomen Exam date and time: 07/20/2024 6:30 AM Age: 69 years old Clinical indication: Other: F/u ileus; Additional info: Follow up ileus TECHNIQUE: Imaging protocol: Radiologic exam of the abdomen. Views: Frontal supine view of the abdomen. 1 View. COMPARISON: CR XR abdomen 1V* [id number] 07/19/2024 7:29 AM FINDINGS: Tubes, catheters and devices: Interval removal of enteric tube. Surgical drain with tip of the right lower quadrant. Gastrointestinal tract: Redemonstrated enlarged small bowel loops measuring up to 5 cm. Bones/joints: Degenerative change of the visualized thoracolumbar spine. XR/XR KUB portable [id number] IMPRESSION: Redemonstrated dilated small bowel loops concerning for ileus versus small bowel obstruction. Interval removal of enteric tube.
--- NOTE | 2024-07-20 06:08 | PC.NURSE ---
Dental Biller informed nurse that patient had came back from the restroom and ng tube had accidentally been pulled out. Nurse attempted to place new NG tube but patient refused. Nurse contacted surgeon relocation services specialist Dr. Crockett to inform him on situation. Dr. Crockett said to leave it out unless patient started vomiting. Dr. Crockett stated he would let Dr. White know about situation this am.
--- NOTE | 2024-07-20 07:33 | PM.PN ---
Subjective Subjective: Postoperative day 4 status post laparoscopic appendectomy for perforated acute appendicitis with abscess and feculent peritonitis. Patient also has a concomitant ileus. Continue patient she has been passing gas and did have a small bowel movement this morning. NG tube was accidentally discontinued. Output had only been 200 cc. Denies abdominal pain, otherwise feeling well. Vitals/I&O/Wt Last Vital Signs Temp 98.4 F 07/20/24 04:00 Pulse 84 07/20/24 04:00 Resp 18 07/20/24 04:00 BP 138/86 07/20/24 04:00 Pulse Ox 96 07/20/24 04:00 O2 Del Method Room Air 07/20/24 04:00 07/19/24 07/20/24 07/20/24 22:59 06:59 14:59 Intake Total 1050 / 2205 191.667 / 2396.667 50 / 50 Output Total 300 / 300 320 / 620 Balance 750 / 1905 -128.333 / 1776.667 50 / 50 Weight last 48 hrs Weight 200 lb 12.8 oz Physical Exam GI: OTHER: Abdominal examination shows a mildly distended abdomen which is nontender, JIAN drain with serous output today. There is improved bowel sounds when compared to yesterday. Data 07/20/24 03:00 07/20/24 03:00 A&P Assessment and plan (1) Adynamic ileus: (2) Acute appendicitis with generalized peritonitis and abscess: Plan Patient appears to be progressing okay, no significant abdominal pain, has passed gas and had a small bowel movement. X-ray done this morning still shows dilated loops of bowel. But in my personal interpretation obtained there is improvement of the distal aeration of the colon. Vitals have been stable. White count trended down to normal. Creatinine is normal. She has persistent hypophosphatemia. I have encouraged the patient to ambulate as much as possible, we will continue with bowel rest today if the patient is able to have a large bowel movement and she is passing gas consistently we may decide to advance diet but otherwise the plan will be to repeat imaging tomorrow. Attestations Medical Necessity Statement*: Patient will require 24 to 48 hours of hospital stay for continued management of perforated acute appendicitis with abscess and peritonitis and also for management of ileus Coding Level of Care Code Acute Code for [facility] Diagnoses Adynamic ileus K56.0 Acute appendicitis with generalized peritonitis and abscess K35.219
[2024-07-20] MEDS: enoxaparin 40 mg/0.4 mL Syringe SUBCUT (08:32)
[2024-07-20] MEDS: pantoprazole 40 mg SDV IVP (08:33)
[2024-07-20] MEDS: potassium phosphate (mMol PO4) 30 MMOL in sodium chloride 0.9% (100 ml) 100 ML 25 MMOL IV (08:33)
[2024-07-20] MEDS: dextrose 5%-sod chloride 0.9% 1,000 ML 75 ML IV (13:13)
--- NOTE | 2024-07-20 15:12 | P.MISC_ITS ---
Miscellaneous Note Purpose of Documentation: Update on patient care Note: Patient is showing excellent progression today. has ambulated and passed gas, had a bM. likely ileus is resolving at this time. we will continue plan of obtaining a CT with contrast tomorrow to evaluate for possible developing intra- abdominal collections and improvement of ileus. will advance diet after scan is obtained.
[2024-07-21] MEDS: dextrose 5%-sod chloride 0.9% 1,000 ML 75 ML IV ×2 (02:51→21:23)
[2024-07-21 04:00] VITALS: BP 125/75; PULSE 63; RESP 16; TEMP 36.8; O2SAT 96
[2024-07-21] MEDS: ketorolac 30 mg/mL INJ 15 MG IVP ×4 (05:32→22:28)
[2024-07-21] MEDS: piperacillin-tazobactam 3.375 GM in sodium chloride 0.9% (plus) 50 ML IV ×3 (05:34→21:23)
--- NOTE | 2024-07-21 06:49 | P.PN_ITS ---
Subjective 2 Subjective: Postoperative day 5 status post laparoscopic appendectomy for perforated acute appendicitis. Patient is doing well has got a very good progress over the last 24 hours has passed gas multiple times as well as multiple bowel movements which indicates that her ileus has resolved. We will obtain a CT abdomen pelvis with contrast today to ensure there is no forming intra-abdominal collections due to the severity of infection during initial operation. Vitals/I&O/Wt Last Vital Signs Temp 98.3 F 07/21/24 04:00 Pulse 63 07/21/24 04:00 Resp 16 07/21/24 04:00 BP 125/75 07/21/24 04:00 Pulse Ox 96 07/21/24 04:00 O2 Del Method Room Air 07/21/24 04:00 07/20/24 07/20/24 07/21/24 14:59 22:59 06:59 Intake Total 968.333 / 968.333 50 / 3231.079 7203 / 2068.333 Balance 968.333 / 968.333 50 / 9475.607 2664 / 2068.333 Weight last 48 hrs Weight 200 lb 4.8 oz Weight 200 lb 12.8 oz Physical Exam 2 GI: OTHER: The abdomen is soft, minimally tender to palpation, JIAN drain with minimal serous output. Good bowel sounds Data 07/20/24 03:00 07/20/24 03:00 A&P Assessment and plan (1) Acute appendicitis with generalized peritonitis and abscess: (2) Adynamic ileus: Plan Patient with very good progression over the last 24 hours, ileus appears to have resolved. We will obtain a CT with contrast today to ensure there is no any intra-abdominal collections that require intervention and if everything goes well we will advance to soft diet and allow the patient to go home. Attestations 2 Medical Necessity Statement*: Possible discharge today Coding Level of Care Code Acute Code for [facility] Diagnoses Acute appendicitis with generalized peritonitis and abscess K35.219 Adynamic ileus K56.0
[2024-07-21 07:07] LABS: Basophils % 0.4 %; Eosinophils # 0.1 10^3/uL (0.0-0.8); Eosinophils % 1.4 %; Hematocrit 36.6 % (36-47); Lymphocytes # 2.1 10^3/uL (0.8-4.8); Lymphocytes % 23.2 %; Mean Corpuscular Hemoglobin 27.8 pg (27-33); Mean Corpuscular Volume 86.9 fl (85-98); Mean Platelet Volume 9.5 fL (7.4-10.4); Monocytes # 0.9 10^3/uL (0.2-0.9); Neutrophils # 5.64 10^3/uL (1.8-7.7); Nucleated Red Blood Cells % 0 %; Platelet Count 325 10^3/cmm (157-399); Red Blood Count 4.21 10^6/uL (3.85-5.65); Red Cell Distribution Width 14.1 % (12.1-15.1)
[2024-07-21 07:27] LABS: Anion Gap 14.9 (5-19); Blood Urea Nitrogen 13 mg/dL (8-23); C Reactive Protein 71.6 mg/L (0.0-4.9); Calcium 7.7 mg/dL (8.5-10.5); Carbon Dioxide 21 mmol/L (22-29); Chloride 107 mmol/L (98-107); Creatinine Clr Calc Pharmacy 76.8017; Glucose 116 mg/dL (65-115); Osmolality Calculated 289 mOsm/kg (285-295); Phosphorus 2.2 mg/dL (2.5-4.5); Potassium 3.9 mmol/L (3.5-5.1); Sodium 139 mmol/L (136-145)
--- NOTE | 2024-07-21 07:34 | CT_ITS ---
WS: [id number] CT ABDOMEN AND PELVIS WITH CONTRAST HISTORY: rule out intra abdominal abscess after perf appy TECHNIQUE: Imaging performed of the abdomen and pelvis with IV contrast. Single phase imaging of the abdomen. Coronal and sagittal reformats are submitted. All CT scans at [facility] use at el st one of these dose optimization techniques: automated exposure control; mA and/or kV adjustment per patient size (includes targeted exams where dose is matched to clinical indication); or iterative re construction. IV CONTRAST: Omnipaque 350; 100 mL IV. Oral contrast: Yes. DLP: 964.23 mGy.cm COMPARISON: 07/16/2024 Lower thorax: Granulomata at the lung bases. New small RIGHT pleural effusion with adjacent atelectas is. Heart is normal size. Small hiatal hernia. Liver/biliary system: Normal size with no intrahepatic dilatation. Gallbladder: Normal. No gallstones or wall thickening. No pericholecystic fluid. Pancreas: Normal size pancreas and pancreatic duct. No adjacent inflammation. Spleen: Normal size spleen with granulomata. Adrenal glands: Normal. Right kidney: Too small to characterize hypodensity. Otherwise negative. Left kidney: Normal. Aorta: Mild atherosclerosis with no aneurysm. Lymphadenopathy: None. Free fluid: There is a small amount of free fluid in the RIGHT lower quadrant extending into the pelv is. No well-formed collection. GI tract: Patient is status post recent appendectomy. There is continued small bowel ileus with the f luid-filled loops measuring greater than 3.5 cm in diameter. Colon is not distended. Abdominal wall: Surgical drain enters the midline in the infraumbilical region with tip terminating i n the RIGHT lower quadrant. Pelvis: Small amount of free fluid in the pelvis. Uterus is atrophic. There is a well-circumscribed m ass with in the endometrial canal measuring 16 x 16 mm. Bones: Lumbar spondylitic changes. Advanced degenerative disc disease. CT/CT abdomen pelvis w con* [id number] IMPRESSION: 1. Status post appendectomy. Postoperative changes in the RIGHT lower quadrant with a small amount of fluid. No abscess at this time. 2. Surgical change is been placed with tip terminating in the RIGHT lower quad rant. 3. Continued ileus. Marked fluid distention of the small bowel. Mild improveme nt since 07/16/2024. 4. Round solid mass along the endometrial canal measures 16 x 16 mm. Recommend follow-up transvaginal pelvic ultrasound.
[2024-07-21 07:42] VITALS: BP 153/82; PULSE 80; RESP 17; TEMP 36.4; O2SAT 96
[2024-07-21] MEDS: iohexol 350 mg/mL 500 mL Btl (per mL) IV (08:09)
[2024-07-21] MEDS: potassium phosphate (mMol PO4) 30 MMOL in sodium chloride 0.9% (100 ml) 100 ML 25 MMOL IV (08:28)
[2024-07-21] MEDS: enoxaparin 40 mg/0.4 mL Syringe SUBCUT (08:30)
[2024-07-21] MEDS: pantoprazole 40 mg SDV IVP (08:30)
[2024-07-21 11:37] VITALS: BP 142/90; PULSE 60; RESP 17; TEMP 36.6; O2SAT 96
--- NOTE | 2024-07-21 12:26 | P.MISC_ITS ---
Miscellaneous Note Purpose of Documentation: Update on patient care Note: Repeat CT scan of the abdomen pelvis was done and showed no evidence of intra- abdominal abscess, there is redemonstration of her ileus. Mildly improved when compared to previous imaging. Clinically she has been passing gas Had several bowel movements over the last 48 hours. We will advance diet as tolerated at this point. JIAN drain was removed. I discussed with the patient I have informed her that in the case of poor p.o. tolerance we may need to consider surgical intervention. If she is tolerating well we will advance her to soft diet tomorrow and let her go home.
[2024-07-21 15:39] VITALS: BP 168/88; PULSE 59; RESP 18; TEMP 36.3; O2SAT 96
[2024-07-21] MEDS: ondansetron 2 mg/ML SDV 2 mL 8 MG IVP (16:12)
--- NOTE | 2024-07-21 16:31 | XRR_ITS ---
PROCEDURE INFORMATION: Exam: XR Abdomen Exam date and time: 07/21/2024 4:43 PM Age: 69 years old Clinical indication: Abdominal pain; Other: Post ileus; Prior surgery; Surgery date: 6+ months; Surgery type: Appy; Additional info: Follow up ileus TECHNIQUE: Imaging protocol: Radiologic exam of the abdomen. Views: Frontal supine view of the abdomen. 1 View. COMPARISON: CT abdomen pelvis w con* [id number] 07/21/2024 8:02 AM FINDINGS: Gastrointestinal tract: Persistent dilatation of the small bowel measuring up to 6.3 cm. Contrast material has migrated into the more distal small bowel. No definite contrast in the colon near Organs: Contrast in the urinary bladder. Bones/joints: Unremarkable. XR/XR KUB portable [id number] IMPRESSION: 1. Persistent severe small bowel ileus. GI contrast material has migrated more distally but not yet entered the colon. Continued radiographic follow-up recommended.
[2024-07-21 19:11] VITALS: BP 151/89; PULSE 82; RESP 17; TEMP 36.8; O2SAT 97
[2024-07-22] VITALS: BP 168/80; PULSE 78; RESP 18; TEMP 36.7; O2SAT 98
[2024-07-22 03:53] VITALS: BP 165/84; PULSE 61; RESP 18; TEMP 36.6; O2SAT 97
[2024-07-22] MEDS: piperacillin-tazobactam 3.375 GM in sodium chloride 0.9% (plus) 50 ML IV (04:10)
[2024-07-22] MEDS: ketorolac 30 mg/mL INJ 15 MG IVP (04:10)
[2024-07-22 04:44] LABS: Basophils % 0.4 %; Eosinophils # 0.2 10^3/uL (0.0-0.8); Eosinophils % 1.5 %; Hematocrit 38.7 % (36-47); Lymphocytes # 2.2 10^3/uL (0.8-4.8); Lymphocytes % 20.6 %; Mean Corpuscular HGB Conc 31.8 g/dL (30-55); Mean Corpuscular Hemoglobin 27.5 pg (27-33); Mean Corpuscular Volume 86.6 fl (85-98); Mean Platelet Volume 9.3 fL (7.4-10.4); Monocytes % 8.9 %; Neutrophils % 65.7 %; Nucleated Red Blood Cells % 0 %; Platelet Count 377 10^3/cmm (157-399); Red Blood Count 4.47 10^6/uL (3.85-5.65); White Blood Count 10.66 10^3/uL (3.29-11.43)
--- NOTE | 2024-07-22 05:03 | XRR_ITS ---
PROCEDURE INFORMATION: Exam: XR Abdomen Exam date and time: 07/22/2024 5:14 AM Age: 69 years old Clinical indication: Condition or disease; Intestinal condition; Other: Ileus; Additional info: F/u ileus TECHNIQUE: Imaging protocol: Radiologic exam of the abdomen. Views: Frontal supine view of the abdomen. 1 View. COMPARISON: CR XR KUB portable [id number] 07/21/2024 4:43 PM FINDINGS: Gastrointestinal tract: Contrast residue within colon. Dilated loops of small bowel suggest small bowel obstruction. The combination of contrast within decompressed colon and dilated small bowel suggests intermittent small bowel obstruction. Bones/joints: Unremarkable. XR/XR KUB portable [id number] IMPRESSION: Findings suggesting intermittent small bowel obstruction.
[2024-07-22 05:10] LABS: Blood Urea Nitrogen 9 mg/dL (8-23); C Reactive Protein 46.2 mg/L (0.0-4.9); Calcium 8.1 mg/dL (8.5-10.5); Carbon Dioxide 22 mmol/L (22-29); Chloride 101 mmol/L (98-107); Creatinine Clr Calc Pharmacy 78.3033; Glucose 112 mg/dL (65-115); Magnesium 1.9 mg/dL (1.7-2.3); Osmolality Calculated 277 mOsm/kg (285-295); Phosphorus 2.2 mg/dL (2.5-4.5); Sodium 134 mmol/L (136-145)
[2024-07-22] MEDS: enoxaparin 40 mg/0.4 mL Syringe SUBCUT (06:17)
--- NOTE | 2024-07-22 07:03 | P.PN_ITS ---
Subjective 2 Subjective: Today is postoperative day 6 status post laparoscopic appendectomy for perforated acute appendicitis with abscess and feculent peritonitis. Over the last 24 hours patient tolerated clear liquid diet and has had several bowel movements. Denies abdominal pain, no nausea or vomit. Vitals/I&O/Wt Last Vital Signs Temp 97.9 F 07/22/24 03:53 Pulse 61 07/22/24 03:53 Resp 18 07/22/24 03:53 BP 165/84 07/22/24 03:53 Pulse Ox 97 07/22/24 03:53 O2 Del Method Room Air 07/22/24 03:53 07/21/24 07/22/24 07/22/24 22:59 06:59 14:59 Intake Total 2130 / 2290 50 / 2340 Balance 2130 / 2260 50 / 2310 Weight last 48 hrs Weight 208 lb 3.2 oz Weight 200 lb 4.8 oz Physical Exam 2 GI: OTHER: Abdominal examination is benign, the abdomen is soft minimally tender to deep palpation in the right lower quadrant there is some persistent distention but is improved when compared to previous days and the bowel sounds are present Data 07/22/24 04:38 07/22/24 04:38 Micro: Microbiology 07/16/24 13:38 Blood Culture - Final Blood NO GROWTH AFTER 5 DAYS 07/16/24 13:30 Blood Culture - Final Blood NO GROWTH AFTER 5 DAYS A&P Assessment and plan (1) Acute appendicitis: (2) Acute appendicitis with generalized peritonitis and abscess: (3) Acute kidney injury: (4) Hypophosphatemia: Plan This is a 69-year-old female who presented with severe acute appendicitis with concomitant ileus versus bowel obstruction. She underwent laparoscopic appendectomy showing evidence of a ruptured appendix with localized feculent peritonitis and abscess. Her postoperative course has been protracted marked by significant postoperative ileus. In the last 24 hours we obtained a repeat CT scan of the abdomen and pelvis with contrast, which showed redemonstration of the ileus, no evidence of transition points, no evidence of intra-abdominal fluid collections. we continued to evaluate follow-up with x-rays of the abdomen and enteral contrast has advanced all the way into the colon and into the rectum but there is still persistent distended bowel loops although they appear slightly improved. Her vital signs had remained completely stable, white count is normal, CRP has continued to trend down and JACQUE has resolved. She continues to pass gas and had multiple bowel movements, has tolerated liquid diet. With this findings my main working diagnosis is a prolonged postoperative ileus likely due to the inflammatory process in the right lower quadrant that was quite severe. I had extensive discussion with the patient regarding the findings and her clinical picture. I think at this moment her best option is to advance her to a full liquid diet and allow her to be discharged from the hospital on a full liquid diet for the next 7 days and then to advance to a GI soft diet to allow time for inflammation to improve. I have explained to the patient that while at the moment there is no clear indication for any additional surgical intervention as there is passage of contrast into the large bowel and no other intra-abdominal evidence of a complete bowel obstruction in CAT scan, we still need to be vigilant and in the case of recurring nausea and vomit or worsening abdominal pain she will have to present back immediately to the hospital for reevaluation. She shows understanding she is agreeable with this plan. -Full liquid diet today -Stop IV fluids -Pain control as needed -Replacement of hypophosphatemia -Will plan on discharge after verifying p.o. tolerance Attestations 2 Medical Necessity Statement*: Will plan to discharge today after verifying p.o. tolerance Coding Level of Care Code Acute Code for [facility] Diagnoses Acute appendicitis K35.80 Acute appendicitis with generalized peritonitis and abscess K35.219 Acute kidney injury N17.9 Hypophosphatemia E83.39
[2024-07-22 08:00] VITALS: BP 162/84; PULSE 59; TEMP 36.6; O2SAT 96
[2024-07-22] MEDS: potassium phosphate (mMol PO4) 30 MMOL in sodium chloride 0.9% (100 ml) 100 ML 25 MMOL IV (08:11)
[2024-07-22] MEDS: pantoprazole 40 mg SDV IVP (08:12)
--- NOTE | 2024-07-22 09:54 | P.DS_ITS ---
Discharge Providers Date of Admission: 07/16/24 16:25 Date of Discharge: July 22, 2024 Attending Provider at Admission: Tavon White MD Attending Provider at Discharge: Tavon White MD Primary Care Provider: Cornelius Shaw MD Diagnoses at Discharge Discharge Diagnosis (1) Acute appendicitis: Status: Acute (2) Acute appendicitis with generalized peritonitis and abscess: Status: Acute (3) Acute kidney injury: Status: Acute (4) Hypophosphatemia: Status: Acute Reason for Visit Reason for Visit: lower right side pain Brief History: This is a 69-year-old female who presented with severe acute appendicitis with concomitant ileus versus bowel obstruction. She underwent laparoscopic appendectomy showing evidence of a ruptured appendix with localized feculent peritonitis and abscess. Her postoperative course has been protracted marked by significant postoperative ileus. In the last 24 hours we obtained a repeat CT scan of the abdomen and pelvis with contrast, which showed redemonstration of the ileus, no evidence of transition points, no evidence of intra-abdominal fluid collections. we continued to evaluate follow-up with x-rays of the abdomen and enteral contrast has advanced all the way into the colon and into the rectum but there is still persistent distended bowel loops although they appear slightly improved. Her vital signs had remained completely stable, white count is normal, CRP has continued to trend down and JACQUE has resolved. She continues to pass gas and had multiple bowel movements, has tolerated liquid diet. With this findings my main working diagnosis is a prolonged postoperative ileus likely due to the inflammatory process in the right lower quadrant that was quite severe. I had extensive discussion with the patient regarding the findings and her clinical picture. I think at this moment her best option is to advance her to a full liquid diet and allow her to be discharged from the hospital on a full liquid diet for the next 7 days and then to advance to a GI soft diet to allow time for inflammation to improve. I have explained to the patient that while at the moment there is no clear indication for any additional surgical intervention as there is passage of contrast into the large bowel and no other intra-abdominal evidence of a complete bowel obstruction in CAT scan, we still need to be vigilant and in the case of recurring nausea and vomit or worsening abdominal pain she will have to present back immediately to the hospital for reevaluation. She shows understanding she is agreeable with this plan. By the time of discharge patient was stable no significant abdominal pain, no nausea or vomit and tolerating full liquid diet. Physical Exam GI: OTHER: Benign abdominal exam, abdomen is slightly distended, nontender, positive bowel sounds in 4 quadrants Discharge Data Studies Completed and Pending Completed Studies During Hospitalization Category Date Time Status CT abdomen pelvis w con* [id number] Routine Cat Scan 07/21/24 07:[address] abdomen renal stone [CT kidney stone [id number]] Stat Cat Scan 07/16/24 14:08 C ompleted XR KUB portable [id number] Routine Exams 07/20/24 06:08 Completed XR KUB portable [id number] Stat Exams 07/21/24 16:31 Completed XR KUB portable [id number] Stat Exams 07/22/24 05:03 Completed XR abdomen 1V* [id number] Stat Exams 07/19/24 06:38 Completed XR chest 1V portable [id number] Routine Exams 07/16/24 18:12 Completed Pathology: Surgical [PTH] Routine Pth 07/16/24 16:38 Completed Radiology Impressions Chest X-Ray 07/16/24 18:12 IMPRESSION: NG tube terminates at the stomach. Abdomen X-Ray 07/19/24 06:38 IMPRESSION: As above. Abdomen/Pelvis CT 07/21/24 07:34 IMPRESSION: 1. Status post appendectomy. Postoperative changes in the RIGHT lower quadrant with a small amount of fluid. No abscess at this time. 2. Surgical change is been placed with tip terminating in the RIGHT lower quadrant. 3. Continued ileus. Marked fluid distention of the small bowel. Mild improvement since 07/16/2024. 4. Round solid mass along the endometrial canal measures 16 x 16 mm. Recommend follow-up transvaginal pelvic ultrasound. KUB X-Ray 07/22/24 05:03 IMPRESSION: Findings suggesting intermittent small bowel obstruction. Laboratory Results WBC 10.66 10^3/uL (3.29-11.43) 07/22/24 04:38 RBC 4.47 10^6/uL (3.85-5.65) 07/22/24 04:38 Hgb 12.30 g/dL (11.27-16.99) 07/22/24 04:38 Hct 38.7 % (36-47) 07/22/24 04:38 MCV 86.6 fl (85-98) 07/22/24 04:38 MCH 27.5 pg (27-33) 07/22/24 04:38 MCHC 31.8 g/dL (30-55) 07/22/24 04:38 RDW 14.0 % (12.1-15.1) 07/22/24 04:38 Plt Count 377 10^3/cmm (157-399) 07/22/24 04:38 MPV 9.3 fL (7.4-10.4) 07/22/24 04:38 Neut % (Auto) 65.7 % 07/22/24 04:38 Lymph % (Auto) 20.6 % 07/22/24 04:38 [place] % (Auto) 8.9 % 07/22/24 04:38 Eos % (Auto) 1.5 % 07/22/24 04:38 Baso % (Auto) 0.4 % 07/22/24 04:38 Neut # (Auto) 7.00 10^3/uL (1.8-7.7) 07/22/24 04:38 Lymph # (Auto) 2.2 10^3/uL (0.8-4.8) 07/22/24 04:38 [place] # (Auto) 1.0 10^3/uL (0.2-0.9) H 07/22/24 04:38 Eos # (Auto) 0.2 10^3/uL (0.0-0.8) 07/22/24 04:38 Baso # (Auto) 0.0 10^3/uL (0.0-0.1) 07/22/24 04:38 Nucleated RBC % (auto) 0 % 07/22/24 04:38 Nucleated RBCs # 0.0 /100WBC 07/22/24 04:38 Sodium 134 mmol/L (136-145) L 07/22/24 04:38 Potassium 4.0 mmol/L (3.5-5.1) 07/22/24 04:38 Chloride 101 mmol/L (98-107) 07/22/24 04:38 Carbon Dioxide 22 mmol/L (22-29) 07/22/24 04:38 Anion Gap 15.0 (5-19) 07/22/24 04:38 BUN 9 mg/dL (8-23) 07/22/24 04:38 Creatinine 0.7 mg/dL (0.5-0.9) 07/22/24 04:38 GFR Calculation 83.0 mL/min (90-130) L 07/22/24 04:38 Glucose 112 mg/dL (65-115) 07/22/24 04:38 Calculated Osmolality 277 mOsm/kg (285-295) L 07/22/24 04:38 Calcium 8.1 mg/dL (8.5-10.5) L 07/22/24 04:38 Phosphorus 2.2 mg/dL (2.5-4.5) L 07/22/24 04:38 Magnesium 1.9 mg/dL (1.7-2.3) 07/22/24 04:38 Total Bilirubin 0.6 mg/dL (0.15-1.2) 07/16/24 13:30 AST 32 U/L (0-32) 07/16/24 13:30 ALT 33 U/L (0-33) 07/16/24 13:30 Alkaline Phosphatase 177 U/L (35-105) H 07/16/24 13:30 C-Reactive Protein 46.2 mg/L (0.0-4.9) H 07/22/24 04:38 Total Protein 7.8 g/dL (6.6-8.7) 07/16/24 13:30 Albumin 3.8 g/dL (3.5-5.2) 07/16/24 13:30 Globulin 4.0 g/dL (1.3-4.6) 07/16/24 13:30 Lipase 9 U/L (13-60) L 07/16/24 13:30 Urine Color Yellow (Yellow) 07/16/24 13:42 Urine Appearance Slightly cloudy (CLEAR) 07/16/24 13:42 Urine pH TNP 07/16/24 13:42 Ur Specific [place] TNP 07/16/24 13:42 Urine Protein TNP 07/16/24 13:42 Urine Glucose (UA) TNP 07/16/24 13:42 Urine Ketones TNP 07/16/24 13:42 Urine Blood TNP 07/16/24 13:42 Urine Nitrate TNP 07/16/24 13:42 Urine Bilirubin TNP 07/16/24 13:42 Urine Urobilinogen TNP 07/16/24 13:42 Ur Leukocyte Esterase TNP 07/16/24 13:42 Urine RBC None /hpf (0-2) 07/16/24 13:42 Urine WBC 0-4 /hpf (0-5) H 07/16/24 13:42 Ur Squamous Epith Cells 21-50 /hpf (0-5) H 07/16/24 13:42 Amorphous Sediment Not Reportable 07/16/24 13:42 Urine Bacteria 2+ /hpf (NONE) H 07/16/24 13:42 Vitals Last Vital Signs Temp 97.8 F 07/22/24 08:00 Pulse 59 L 07/22/24 08:00 Resp 18 07/22/24 03:53 BP 162/84 07/22/24 08:00 Pulse Ox 96 07/22/24 08:00 O2 Del Method Room Air 07/22/24 03:53 Discharge Plan Discharge Patient Disposition: Home Condition: Stable Prescriptions: New meloxicam 7.5 mg tablet 7.5 mg PO DAILY 5 Days Qty: 5 0RF amoxicillin-pot clavulanate 875-125 mg tablet 1 tab PO BID 7 Days Qty: 14 0RF polyethylene glycol 3350 [Miralax] 17 gram powder in packet 17 g PO DAILY 14 Days Qty: 14 0RF Continued omeprazole magnesium [Prilosec OTC] 20 mg Tablet,Delayed Release (Dr/Ec) 20 mg PO BID Discontinued Metamucil Packet 1 packet PO QPM Rx Instructions: mix into at least 8 oz of water or juice before administering ibuprofen 200 mg Tablet 200 mg PO Q6H PRN (Reason: Pain) Discharge Orders: Discharge Order (Routine); Ordered 07/22/24 Ordered By: Tavon White Referrals: Tavon Whtie MD [Physician] - (1 week) Cornelius Shaw MD [Primary Care Provider] - Discharge Diet: Full LIquid Discharge Activity: Resume usual activity Patient Instructions: Full Liquid Diet (DC), Opioid Safety Assessment: No heavy lifting, nothing more than 10 pounds over the next 4 to 6 weeks. Walk is much as possible this will speed up the recovery. Return to the hospital if you have fever, chills, abdominal pain that is worsening, nausea or vomit or if you become constipated. You can shower starting today let soap and water run over your wounds and then pat dry Discharge Attestations Time Spent in Discharge Care*: greater than 30 min Quality Metrics Clinical Quality Measures [ No reported AMI, CVA or VTE this stay] Coding Level of Care Code Acute Code for Chg Fwd Diagnoses Acute appendicitis K35.80 Acute appendicitis with generalized peritonitis and abscess K35.219 Acute kidney injury N17.9 Hypophosphatemia E83.39
[2024-07-22 12:00] VITALS: BP 171/93; PULSE 72; RESP 15; TEMP 36.7; O2SAT 96
--- NOTE | 2024-07-22 15:03 | PC.NURSE ---
Discussed discharge with patient. Discussed new medications and continued medications as well as follow up appointments. Discussed in detail Full Liquid diet with patient and answered all questions. Medications sent to [facility]. Verbalized understanding. Patient was discharged after Potassium Phosphate completed and spouse came back to pick her up.
[2024-07-22 15:05] VITALS: BP 171/93; PULSE 72; RESP 15; TEMP 36.7; O2SAT 96
== END 2024-07-22 13:20 | disposition home or self-care (01) | DRG 398 ==
LOC: ER 14:50 → OR 14:58 → MEDSURG 07-17 11:06
PROVIDERS: Admitting Provider Surgery; Emergency Provider Emergency Medicine; Family Provider Family Medicine; PCP Family Medicine; Visit Provider Surgery
PROC: 0DTJ4ZZ Resection of Appendix, Percutaneous Endoscopic Approach (ICD-10-PCS; CPT 44970; principal; 2024-07-16 16:00)
DX: K35.33 Acute appendicitis with perforation, localized peritonitis, and gangrene, with abscess (principal); K56.0 Paralytic ileus; N17.9 Acute kidney failure, unspecified; E83.39 Other disorders of phosphorus metabolism; E86.0 Dehydration
CPT/HCPCS: 36415; 71045; 74018; 74176; 74177; 80048; 80053; 81001; 83690; 83735; 84100; 85025; 86140; 87040; 88304; 96365; 96372; 96375; 99285; J0131; J0330; J1100; J1171; J1650; J1885; J2270; J2405; J2470; J2543; J2704; J3010; J3480; J3490; J7030; J7042; J7120

== ENCOUNTER → 2024-07-26 09:45 | Outpatient (BNVA) | payer MEDICARE, OTHER, SELFPAY | PROVIDERS: Family Provider Family Medicine; Visit Provider Surgery | DX: R03.0 Elevated blood-pressure reading, without diagnosis of hypertension (principal); Z98.890 Other specified postprocedural states | CPT/HCPCS: 99024 ==

== ENCOUNTER → 2024-08-02 11:01 | Outpatient (BNVA) | payer MEDICARE, OTHER, SELFPAY | PROVIDERS: Family Provider Family Medicine; Visit Provider Surgery | DX: K56.0 Paralytic ileus (principal); Z98.890 Other specified postprocedural states | CPT/HCPCS: 99024 ==

== ENCOUNTER → 2024-08-29 13:48 | Outpatient (BNVA) | payer MEDICARE, OTHER, SELFPAY | PROVIDERS: Family Provider Family Medicine; Referring Provider Surgery; Visit Provider Obstetrics & Gynecology | DX: N85.9 Noninflammatory disorder of uterus, unspecified (principal) | CPT/HCPCS: 87624 ==

== ENCOUNTER → 2024-09-08 10:10 | Outpatient (BNVA) | payer MEDICARE, OTHER, SELFPAY | PROVIDERS: Family Provider Family Medicine; Visit Provider Obstetrics & Gynecology | DX: D26.1 Other benign neoplasm of corpus uteri (principal) | CPT/HCPCS: 76830 ==